=== PATIENT | female | born 1950 | race Caucasian/White ===

== ENCOUNTER 2018-07-07 08:50 | Day surgery (SDC) | payer MEDICARE, BC ==
[~2018-07-07 08:50] MED LIST: Lactated Ringers 1,000 ML IV SCH; Midazolam 1 MG/ML 2 ML SDV ONE; Propofol 200 MG/20 ML SDV ONE; Sodium Chloride 0.9% 10 ML Syringe FLUSH PRN; fentaNYL 100 MCG/2 ML SDV ONE
--- NOTE | 2018-07-07 09:42 | PCM.PN ---
- General Info Date of Service: 07/07/18 - Review of Systems Systems Review Comment:: 68 y/o female referred for EGD and Colonoscopy. She had positive stool occult test. She also has had symptoms of acid reflux. She has never had a previous complete colonoscopy. She is medically stable to proceed today. Her recent history and physical is reviewed and no significant changes are identified. I discussed the proposed EGD and colonoscopy with the patient. Risks such as but not limited to bleeding and GI injury reviewed. She appears to understand and agrees to proceed. - Patient Data Weight - Most Recent: 117.934 kg Med Orders - Current: Current Medications Lactated Ringer's (Ringers, Lactated) 1,000 mls @ 125 mls/hr IV ASDIRECTED LOUIE Last Admin: 07/07/18 09:38 Dose: 125 mls/hr Sodium Chloride (Saline Flush) 10 ml FLUSH ASDIRECTED PRN PRN Reason: Keep Vein Open Discontinued Medications Fentanyl (Sublimaze) Confirm Administered Dose 100 mcg .ROUTE .STK-MED ONE Stop: 07/07/18 08:37 Midazolam HCl (Versed 1 Mg/Ml) Confirm Administered Dose 2 mg .ROUTE .STK-MED ONE Stop: 07/07/18 08:37 Propofol (Diprivan 20 Ml) Confirm Administered Dose 400 mg .ROUTE .STK-MED ONE Stop: 07/07/18 08:37 - Problem List Review Problem List Initiated/Reviewed/Updated: Yes - Assessment Assessment:: GERD Stool occult positive - Plan Plan:: EGD and colonoscopy
[2018-07-07] MEDS ORDERED: Propofol 200 MG/20 ML SDV ONE ×2 (09:44→10:57)
[2018-07-07] MEDS ORDERED: Lidocaine 2% 100 MG/5 ML Syringe ONE (09:44)
[2018-07-07] MEDS ORDERED: fentaNYL 100 MCG/2 ML SDV ONE (09:44)
[2018-07-07] MEDS ORDERED: Ondansetron 4 MG/2 ML SDV ONE (09:44)
[2018-07-07] MEDS ORDERED: Midazolam 1 MG/ML 2 ML SDV ONE (09:44)
--- NOTE | 2018-07-07 10:54 | PCM.OPNOTE ---
- General Post-Op/Procedure Note Date of Surgery/Procedure: 07/07/18 Operative Procedure(s): EGD with biopsy and Colonoscopy with Polpectomy Findings: Small Paraesophageal Hernia Mild Reflux esophagitis and GE Jct Multiple colon polyps Moderate Sigmoid Diverticulosis Moderate external hemorrhoids Pre Op Diagnosis: GERD. Guiac + Stools Post-Op Diagnosis: Paraesophageal Hernia. Reflux esophagitis and GE Jct. Multiple colon polyps. Moderate Sigmoid Diverticulosis. Hemorrhoids Anesthesia Technique: [facility] [place] Surgeon: Sourav Wells Pathology: Biopsies of Antrum and Esophagus Colon Polyps Output, Urine Amount: 0 EBL in mLs: 4 Complications: None Condition: Good
--- NOTE | 2018-07-07 12:37 | OR ---
Date of Procedure: 07/07/2018 PREOPERATIVE DIAGNOSIS: Gastroesophageal reflux disease and guaiac-positive stools. POSTOPERATIVE DIAGNOSES: Reflux esophagitis, paraesophageal hernia, multiple colon polyps, sigmoid diverticulosis, hemorrhoids. OPERATIONS PERFORMED: Esophagogastroduodenoscopy with biopsy and colonoscopy with polypectomy. INDICATIONS FOR SURGERY: This 68-year-old female has a longstanding history of symptoms of gastroesophageal reflux disease. It has been several years since her last upper endoscopy. She is noticing some worsening of her symptoms and comes for upper endoscopy. She also has never had a prior colonoscopy and was recently noted to have guaiac-positive stools. FINDINGS: On upper endoscopy, the patient does have a mild degree of esophagitis located at the GE junction 41 cm from the incisors. The remainder of the esophagus appeared normal. The mucosa of the stomach appeared normal without visible signs of inflammation or ulcers, although there was a small paraesophageal hernia extending from the apex of the fundus. The duodenum to the third portion appeared normal. On colonoscopy, multiple polyps were noted. There were 3 to 4 mm sessile polyps noted in the rectum 5 cm from the anal verge and in the sigmoid colon 15 cm from the anal verge. There was a sessile 6 mm polyp in the sigmoid colon 18 cm from the anal verge. There was a 6 mm sessile polyp at the splenic flexure and an 8 mm irregular yet soft polyp noted in the cecum. The patient also has a moderate degree of sigmoid diverticulosis, which does not appear to be acutely inflamed, or otherwise, complicated. She also has external hemorrhoids of moderate size. The colon otherwise appeared normal. DESCRIPTION OF PROCEDURE: The patient was taken to the operating room. She was given intravenous sedation, and with her in the left lateral decubitus position, the esophagus was intubated under direct visualization with the Olympus gastroscope. This was carefully advanced down through the esophagus, stomach, and into the duodenum, where examination to the third portion was performed. The duodenum and pyloric region were carefully examined. The stomach was then fully examined, including retroflexed examination of the fundus. The findings were as described above. Random biopsies of the antrum were taken to rule out H. pylori. The GE junction and distal esophagus were then examined and biopsies of the GE junction were taken because of the visible inflammation there. Biopsies were also taken in the lower part of the esophagus to rule out eosinophilic esophagitis. The scope was then removed and attention was turned to colonoscopy. Digital rectal exam was performed showing no rectal masses. The Olympus colonoscope was inserted into the rectum and retroflexed examination of the rectal canal was performed. The above described small polyps were noted in the rectum and distal sigmoid region, and these were removed with the biopsy forceps. They were appeared to be completely removed in this manner. As the scope was then advanced, the other above-described polyps were identified and these were each removed with a cautery snare as they were visualized and then retrieved into a polyp trap. With careful persistent manipulation, the scope was eventually able to be advanced into the cecum where cecal identity was confirmed by noting normal internal cecal anatomy and also viewing the light to transilluminate the abdominal wall in the right lower quadrant. After examining the cecum and removing the cecal polyp, scope was slowly withdrawn sequentially re-examining the colonic segments until the entire colon and rectum had been fully examined. The scope was removed and the patient was taken from the operating room in satisfactory condition. ESTIMATED BLOOD LOSS: 4 mL. COMPLICATIONS: None. PROGNOSIS: Good. LIBRA Wells MD /[id number]
== END 2018-07-07 11:55 | disposition home or self-care (01) ==
LOC: LL.SDS 08:50
PROVIDERS: ATTEND Surgery
DX: K57.31 Diverticulosis of large intestine without perforation or abscess with bleeding (principal); D12.0 Benign neoplasm of cecum; K63.5 Polyp of colon; K62.1 Rectal polyp; K64.4 Residual hemorrhoidal skin tags; K21.9 Gastro-esophageal reflux disease without esophagitis; K22.70 Barrett's esophagus without dysplasia; K44.9 Diaphragmatic hernia without obstruction or gangrene; K31.89 Other diseases of stomach and duodenum; I10 Essential (primary) hypertension; I48.91 Unspecified atrial fibrillation; I25.10 Atherosclerotic heart disease of native coronary artery without angina pectoris; D64.9 Anemia, unspecified; Z88.5 Allergy status to narcotic agent; Z88.8 Allergy status to other drugs, medicaments and biological substances; Z88.7 Allergy status to serum and vaccine; Z79.82 Long term (current) use of aspirin; Z79.01 Long term (current) use of anticoagulants; Z79.899 Other long term (current) drug therapy
CPT/HCPCS: 00813; J2001; J2250; J2405; J2704; J3010; J7120

== ENCOUNTER 2019-02-09 10:51 | Emergency (ER) | payer MEDICARE, BC ==
[2019-02-09] MEDS ORDERED: Ondansetron 4 MG Tab.DIS PO ONE (10:54)
[2019-02-09] MEDS ORDERED: traMADol 50 MG Tab PO ONE (13:24)
[2019-02-09] MEDS ORDERED: Diazepam 5 MG Tab PO ONE (13:24)
--- NOTE | 2019-02-09 13:53 | EDM.PDOC ---
ED HPI GENERAL MEDICAL PROBLEM - General Chief Complaint: Upper Extremity Injury/Pain Stated Complaint: fall, arm pain Time Seen by Provider: 02/09/19 11:04 Source of Information: Reports: Patient History Limitations: Reports: No Limitations - History of Present Illness INITIAL COMMENTS - FREE TEXT/NARRATIVE: Patient brought to ER via EMS after falling on ice at [place]. Landed on right arm. Has shoulder pain on right. Denies other injuries/hitting head. No back or neck pain. No numbness/tingling in affected hand or arm. Right Upper Arm Pain Score (Numeric/FACES): 10 - Related Data Allergies Allergy/AdvReac Type Severity Reaction Status Date / Time codeine Allergy Nausea and Verified 02/09/19 11:02 Vomiting egg Allergy Anaphylactic Verified 02/09/19 11:02 Shock gabapentin Allergy Other Verified 02/09/19 11:02 Influenza Virus Vaccines Allergy Unknown Verified 02/09/19 11:02 meperidine [From Demerol] Allergy Anaphylactic Verified 02/09/19 11:02 Shock morphine Allergy Nausea and Verified 02/09/19 11:02 Vomiting pantoprazole [From Protonix] Allergy Diarrhea Verified 02/09/19 11:02 [id number] Reductase Allergy Unknown Verified 02/09/19 11:02 Inhibitor Home Meds: Home Meds Acetaminophen [Tylenol Arthritis] 650 mg PO BID 07/07/18 [History] Albuterol Sulfate [Proair Respiclick] 90 mcg IH Q4HR PRN 07/07/18 [History] Amoxicillin 2,000 mg PO DAILY PRN 07/07/18 [History] Apixaban [Eliquis] 5 mg PO BID 07/07/18 [History] Azelastine HCl 1 puff INH BID 07/07/18 [History] Budesonide/Formoterol [Symbicort 160-4.5 MCG] 2 puff BID 07/07/18 [History] Calcium Carbonate/Vitamin D3 [Caltrate 600 + D Soft Chew Tab] 1 tab PO DAILY [History] Ergocalciferol (Vitamin D2) [Vitamin D2] 2,000 unit PO DAILY 07/07/18 [History] Fluconazole [Diflucan] 150 mg PO DAILY PRN 07/07/18 [History] Furosemide [Lasix] 40 mg PO DAILY 07/07/18 [History] Hydroxychloroquine Sulfate [Plaquenil] 300 mg PO BEDTIME 07/07/18 [History] Krill Oil 500 mg PO DAILY 07/07/18 [History] Lysine 500 mg PO BEDTIME 07/07/18 [History] Montelukast [Singulair] 10 mg PO DAILY 07/07/18 [History] Multivitamin [Multivitamins] 1 tab PO DAILY 07/07/18 [History] Nystatin [Nystatin Crm] 1 applic TOP DAILY PRN 07/07/18 [History] Omeprazole 40 mg PO DAILY 07/07/18 [History] Potassium Chloride [Klor-Con 10] 10 meq PO DAILY 07/07/18 [History] Triamcinolone Acetonide [Nasacort] 55 mcg INH Q4HR PRN 07/07/18 [History] Ubidecarenone [Coq-10] 200 mg PO DAILY 07/07/18 [History] Verapamil [Covera-HS] 240 mg PO BEDTIME 07/07/18 [History] Ferrous Sulfate [Iron] 325 mg PO DAILY 02/09/19 [History] diazePAM [Valium] 5 mg PO BID PRN #10 tab 02/09/19 [Rx] traMADol [Ultram] 50 mg PO Q6H PRN #15 tab 02/09/19 [Rx] Past Medical History HEENT History: Reports: Other (See Below) Other HEENT History: seasonal allergies Cardiovascular History: Reports: Afib, Heart Murmur, Hypertension, Other (See Below) Other Cardiovascular History: mitral tricuspid valve regurgitaion Respiratory History: Reports: Sleep Apnea Gastrointestinal History: Reports: GERD, Hiatal Hernia, Other (See Below) Other Gastrointestinal History: heartburn, rectocele, positive Cologuard Genitourinary History: Reports: Other (See Below) Other Genitourinary History: overactive bladder, cystocele Musculoskeletal History: Reports: Arthritis, Other (See Below) Other Musculoskeletal History: polyarthralgia with positvie antibodies Neurological History: Reports: Headaches, Chronic, Migraines Other Neuro History: mother with alzheimers dse - Past Surgical History Other Cardiovascular Surgeries/Procedures: status post ablation Female Surgical History: Reports: Hysterectomy Musculoskeletal Surgical History: Reports: ORIF, Other (See Below) Other Musculoskeletal Surgeries/Procedures:: ORIF of the ankle, right foot fusion, lumbar fusion L4-5, fusion to the metatarsal joint on the left Social & Family History - Family History Cardiac: Reports: Arrhythmia, CAD Other Cardiac Family History: dad-CAD, sister-arrhythmia Neurological: Reports: Alzheimers Disease Other Neurological Family History: mom - kayleigh dse - Tobacco Use Smoking Status *Q: Former Smoker Used Tobacco, but Quit: Yes Month/Year Tobacco Last Used: many years ago - Caffeine Use Caffeine Use: Reports: None Review of Systems - Review of Systems Review Of Systems: See Below Constitutional: Reports: No Symptoms Eyes: Reports: No Symptoms Ears: Reports: No Symptoms Nose: Reports: No Symptoms Mouth/Throat: Reports: No Symptoms Respiratory: Reports: No Symptoms. Denies: Pleuritic Chest Pain Cardiovascular: Reports: No Symptoms GI/Abdominal: Reports: No Symptoms Musculoskeletal: Reports: Shoulder Pain (right), Arm Pain (proximal right arm). Denies: Neck Pain, Back Pain, Hand Pain, Leg Pain, Foot Pain Skin: Reports: No Symptoms Neurological: Reports: No Symptoms Psychiatric: Reports: No Symptoms ED EXAM, GENERAL - Physical Exam Exam: See Below Exam Limited By: No Limitations General Appearance: Alert, WD/WN, Mild Distress Eye Exam: Bilateral Eye: EOMI, PERRL Ears: Normal External Exam Nose: No: Nasal Deformity, Nasal Swelling, Nasal Drainage Throat/Mouth: Normal Lips, Normal Voice, No Airway Compromise Head: Atraumatic, Normocephalic Neck: Supple, Non-Tender Respiratory/Chest: No Respiratory Distress, Lungs Clear, Normal Breath Sounds, Chest Non-Tender Cardiovascular: Normal Peripheral Pulses, Regular Rate, Rhythm, No Murmur Peripheral Pulses: 2+: Radial (R) GI/Abdominal: Soft, Non-Tender (Female) Exam: Deferred Rectal (Female) Exam: Deferred Back Exam: No: Muscle Spasm, Paraspinal Tenderness, Vertebral Tenderness Extremities: Normal Capillary Refill, Limited Range of Motion (right arm), Other (tender with palpation over right prox humerus). No: Increased Warmth, Mottled, Pallor, Redness Neurological: Alert, Oriented, Normal Cognition Psychiatric: Normal Affect, Normal Mood Skin Exam: Warm, Dry, Intact, Normal Color Course - Vital Signs Last Recorded V/S: Last Vital Signs Temp 35.6 C 02/09/19 11:08 Pulse 68 02/09/19 11:35 Resp 16 02/09/19 11:08 BP 160/81 H 02/09/19 11:35 Pulse Ox 97 02/09/19 11:08 - Orders/Labs/Meds Orders: Active Orders 24 hr Category Date Time Status Humerus Rt [CR] Stat Exams 02/09/19 11:05 Ordered Shoulder Comp Rt [CR] Stat Exams 02/09/19 11:05 Ordered Meds: Medications Discontinued Medications Generic Name Dose Route Start Last Admin Trade Name Freq PRN Reason Stop Dose Admin Diazepam 5 mg 02/09/19 13:24 02/09/19 13:52 Valium. PO 02/09/19 13:25 5 mg ONETIME ONE Administration Ondansetron HCl 8 mg 02/09/19 10:54 02/09/19 10:58 Zofran Odt PO 02/09/19 10:55 8 mg ONETIME ONE Administration Tramadol HCl 100 mg 02/09/19 13:24 02/09/19 13:50 Ultram PO 02/09/19 13:25 100 mg ONETIME ONE Administration - Radiology Interpretation Free Text/Narrative:: Xray confirmed fracture of humeral head on right - Re-Assessments/Exams Free Text/Narrative Re-Assessment/Exam: Patient initially declined pain meds. BP elevated. History of HTN but suspected to have significant pain component to elevation. Eventually accepted Valium to assist with muscle spasms in right shoulder and Tramadol to help with pain. Contacted [facility] per patient's request. Discussed xray/patient with . He recommended shoulder immobilizer with follow up at Ortho clinic. Able to obtain appointment for patient to be seen tomorrow at Ortho clinic. Placed in shoulder immobilizer. Rx for small amount of Tramadol and Valium given to patient. She is to observe BP trends and will have BP rechecked tomorrow at clinic appointment. To follow up if trends remain elevated. Precautions reviewed prior to discharge. To follow up as needed otherwise. Departure - Departure Time of Disposition: 14:12 Disposition: Home, Self-Care 01 Clinical Impression: Humeral head fracture Qualifiers: Encounter type: initial encounter Fracture type: closed Laterality: right Qualified Code(s): S42.291A - Other displaced fracture of upper end of right humerus, initial encounter for closed fracture - Discharge Information *PRESCRIPTION DRUG MONITORING PROGRAM REVIEWED*: Not Applicable *COPY OF PRESCRIPTION DRUG MONITORING REPORT IN PATIENT DUSTIN: Not Applicable Prescriptions: diazePAM [Valium] 5 mg PO BID PRN #10 tab PRN Reason: Spasms traMADol [Ultram] 50 mg PO Q6H PRN #15 tab PRN Reason: Pain (Moderate 4-6) Instructions: Humerus Fracture Treated With Immobilization, [id number] Referrals: Svetlana Church NP [Primary Care Provider] - Forms: ED Department Discharge Additional Instructions: 11:30 AM appointment tomorrow at [facility]! Wear shoulder immobilizer to protect break/improve pain. Ice is ok on the injured area. Just don't over do it and get frostbite. Take Valium to help with muscle spasm. Try breaking them in half if you want to see if lower dose is effective. Take Tylenol to help with pain. You can add the Tramadol for increased pain relief. Avoid Ibuprofen/NSAIDS for now due to bleeding risk if you end up having surgery. Follow up otherwise as needed if you have additional problems. Sepsis Event Note - Evaluation Sepsis Screening Result: No Definite Risk - Focused Exam Vital Signs: Vital Signs Temp Pulse Resp BP Pulse Ox 02/09/19 11:35 68 160/81 H 02/09/19 11:08 35.6 C 62 16 154/100 H 97 Date Exam was Performed: 02/09/19 Time Exam was Performed: 14:04 - My Orders Last 24 Hours: My Active Orders 02/09/19 11:05 Humerus Rt [CR] Stat Shoulder Comp Rt [CR] Stat - Assessment/Plan Last 24 Hours: My Active Orders 02/09/19 11:05 Humerus Rt [CR] Stat Shoulder Comp Rt [CR] Stat
== END 2019-02-09 14:15 | disposition home or self-care (01) ==
LOC: LL.ED 10:51
DX: S42.291A Other displaced fracture of upper end of right humerus, initial encounter for closed fracture (principal); W00.0XXA Fall on same level due to ice and snow, initial encounter; I48.91 Unspecified atrial fibrillation; I10 Essential (primary) hypertension; I08.1 Rheumatic disorders of both mitral and tricuspid valves; G47.30 Sleep apnea, unspecified; K21.9 Gastro-esophageal reflux disease without esophagitis; M19.90 Unspecified osteoarthritis, unspecified site; N32.81 Overactive bladder; Z88.5 Allergy status to narcotic agent; Z88.7 Allergy status to serum and vaccine; Z88.8 Allergy status to other drugs, medicaments and biological substances; Z91.012 Allergy to eggs; Z79.899 Other long term (current) drug therapy; Z87.891 Personal history of nicotine dependence; Z90.710 Acquired absence of both cervix and uterus; Z98.1 Arthrodesis status
CPT/HCPCS: 73030; 73060; 99283; A9270

== ENCOUNTER 2023-06-08 15:31 | Emergency (ER) | payer MEDICARE ==
[2023-06-08 15:34] VITALS: PULSE 155
[2023-06-08 15:53] LABS: BASOPHILS ABSOLUTE AUTO 0.03 K/uL (0.00-0.20); BASOPHILS PERCENT AUTO 0.4 % (0.0-2.0); EOSINOPHILS PERCENT AUTO 1.4 % (0.0-5.0); HEMATOCRIT 47.6 % (34.0-46.0); HEMOGLOBIN 15.3 g/dL (11.7-15.5); LYMPHOCYTES ABSOLUTE AUTO 2.15 K/uL (0.50-3.50); LYMPHOCYTES PERCENT AUTO 29.2 % (10.0-50.0); MEAN CORPUSCULAR HEMOGLOBIN 28.4 pg (28.2-33.3); MEAN CORPUSCULAR HGB CONC 32.1 g/dL (31.7-36.0); MEAN CORPUSCULAR VOLUME 88.3 fL (84.0-98.0); MONOCYTES ABSOLUTE AUTO 0.85 K/uL (0.00-1.00); MONOCYTES PERCENT AUTO 11.5 % (2.0-14.0); NEUTROPHILS ABSOLUTE AUTO 4.23 K/uL (1.40-7.00); NEUTROPHILS PERCENT AUTO 57.5 % (45.0-80.0); PLATELET COUNT,PLT 354 K/uL (150-350); RED BLOOD CELL COUNT 5.39 M/uL (3.77-5.09); RED CELL DISTRIBUTION WIDTH 16.9 % (11.2-14.1); WHITE BLOOD CELL COUNT,WBC 7.4 K/uL (4.0-10.2)
[2023-06-08 16:12] LABS: ALANINE AMINOTRANSFERASE,ALT 44 U/L (12-78); ALBUMIN 4.5 g/dL (3.4-5.0); ALKALINE PHOSPHATASE 80 IU/L (46-116); ANION GAP 11.9 meq/L (7-15); ASPARTATE AMNIOTRANSFERASE,AST 33 U/L (15-37); BILIRUBIN TOTAL 0.5 mg/dL (0.2-1.0); BLOOD UREA NITROGEN,BUN 18 mg/dL (7-18); CALCIUM 9.7 mg/dL (8.5-10.1); CARBON DIOXIDE,CO2 30.1 mmol/L (21.0-32.0); CHLORIDE,CL 99 mmol/L (98-107); CREATININE 0.97 mg/dL (0.51-1.17); EST CRCL DRUG DOSING (CG) 48.35 mL/min; GLUCOSE RANDOM 149 mg/dL (70-99); SODIUM,NA 141 mmol/L (136-145)
[2023-06-08 16:17] LABS: ESTIMATED GFR 62 mL/min (>=60)
[2023-06-08] MEDS: Diltiazem 125 MG in Sodium Chloride 0.9% 100 ML IV SCH (16:40)
[2023-06-08] MEDS: Diltiazem 25 MG/5 ML SDV IVPUSH ONE (16:40)
[2023-06-08] MEDS: Sodium Chloride 0.9% 10 ML Syringe FLUSH PRN (16:41)
== END 2023-06-08 17:00 ==
LOC: LL.ED 15:31
DX: I48.91 Unspecified atrial fibrillation (principal); I10 Essential (primary) hypertension; K21.9 Gastro-esophageal reflux disease without esophagitis; Z91.048 Other nonmedicinal substance allergy status; Z88.5 Allergy status to narcotic agent; Z91.012 Allergy to eggs; Z88.7 Allergy status to serum and vaccine; Z88.6 Allergy status to analgesic agent; Z88.8 Allergy status to other drugs, medicaments and biological substances; Z90.710 Acquired absence of both cervix and uterus; Z79.51 Long term (current) use of inhaled steroids; Z79.899 Other long term (current) drug therapy; Z79.01 Long term (current) use of anticoagulants
CPT/HCPCS: 36415; 71045; 80053; 84484; 85025; 93005; 96374; 99285; J3490; 93010; 99284